=== PATIENT | male | born 1955 | race Caucasian/White ===

== ENCOUNTER → 2024-10-20 | Outpatient (CLI) | payer MEDICARE, OTHER, SELFPAY ==
[2024-10-20 18:32] LABS: Hepatitis B Surface Antibody Nonreactive
[2024-10-23 15:27] LABS: Lyme Scn Total Ab w/Rflx REF LAB
== END | disposition home or self-care (01) ==
LOC: MTLAB 14:14
PROVIDERS: Referring Provider Dermatology Pediatric Dermatology; Visit Provider Dermatology Pediatric Dermatology
DX: L40.0 Psoriasis vulgaris (principal); L40.59 Other psoriatic arthropathy; L28.1 Prurigo nodularis; Z79.899 Other long term (current) drug therapy
CPT/HCPCS: 36415; 80074; 86480; 86618; 86706; 86708